=== PATIENT | female | born 2000 | race African-American/Black ===

== ENCOUNTER 2019-03-24 18:04 | Observation (INO) | payer MEDICAID ==
[~2019-03-24] VITALS: Ht 165.1 cm; Wt 76.7 kg
[2019-03-24] MEDS ORDERED: LACTATED RINGERS 1,000 ML IV SCH (19:00)
[2019-03-24] MEDS ORDERED: TERBUTALINE SULFATE 1MG/ML VIAL SUBCUT PRN (19:00)
[2019-03-24 19:40] LABS: COLOR URINE YELLOW (YELLOW); KETONES URINE TRACE (NEGATIVE); LEUKOCYTE ESTERASE URINE 2+ (NEGATIVE); NITRITE URINE NEGATIVE (NEGATIVE); OCCULT BLOOD URINE NEGATIVE (NEGATIVE); PH URINE 6.5 (4.5-8.0); PROTEIN URINE NEGATIVE (NEGATIVE); SPECIFIC GRAVITY URINE 1.029 (1.005-1.030)
[2019-03-24 19:45] LABS: CLARITY URINE SL HAZY (CLEAR)
[2019-03-24] MEDS ORDERED: ACETAMINOPHEN 500MG TABLET PO NR (21:30)
[2019-03-24] MEDS ORDERED: PNV1TABL50 PO (21:50)
== END 2019-03-24 22:15 | disposition home or self-care (01) ==
LOC: 8 EST LDRP 18:04
PROVIDERS: ADMIT Specialist; ATTEND Specialist
DX: O62.9 Abnormality of forces of labor, unspecified (principal); Z3A.34 34 weeks gestation of pregnancy
CPT/HCPCS: 81003; 96360; 96361; 96372; 99281; G0378; J3105